=== PATIENT | male | born 1980 | race Caucasian/White ===

== ENCOUNTER 2021-03-22 18:01 | Emergency (ER) | payer BC ==
[~2021-03-22] VITALS: Ht 185.4 cm; Wt 99.8 kg
[2021-03-22 18:12] VITALS: BP_SYST 133
[2021-03-22 19:30] VITALS: BP_SYST 133
[2021-03-22] MEDS ORDERED: DIPH-TET-PERTUS Vaccine 0.5 ML VIAL (ADACEL) I.M. ONE (19:30)
== END 2021-03-22 19:30 | disposition home or self-care (01) ==
LOC: SED 18:01
DX: S61.411A Laceration without foreign body of right hand, initial encounter (principal); W25.XXXA Contact with sharp glass, initial encounter; Y93.89 Activity, other specified; Y92.89 Other specified places as the place of occurrence of the external cause; Y99.8 Other external cause status
CPT/HCPCS: 90715; 99283